=== PATIENT | male | born 1990 | race Two or more races ===

== ENCOUNTER 2016-08-22 18:53 | Emergency (ER) | payer SELFPAY ==
[2016-08-22 18:58] VITALS: BP 150/82; PULSE 98; TEMP 97.8; BMI 41.7
[2016-08-22] MEDS ORDERED: ACETAMINOPHEN 500 MG TABLET (FP) PO ONE (19:19)
--- NOTE | 2016-08-22 19:19 | PDOC ---
History of Present Illness - General Chief Complaint: Edema Stated Complaint: INFECTION Time Seen by Provider: 08/22/16 19:01 History Source: Patient Exam Limitations: No Limitations - History of Present Illness Initial Comments: 08/22/16 19:44 My Chief Complaint: Right fifth finger tenderness around cuticle History of present illness: Patient is a 26-year-old male with no significant medical problem here today planing of tenderness around cuticle on the right fifth finger after biting cuticle a few days ago. Reports that area is tender and is currently a 5 out of 10 when touching the area. Patient denies any injury to his finger. Patient has full range of motion at PIP DIP and MCP. Denies any numbness of right fifth finger. Pt.is afebrile. Past History - Past Medical History Allergies/Adverse Reactions: Allergies Allergy/AdvReac Type Severity Reaction Status Date / Time No Known Allergies Allergy Verified 08/22/16 18:57 Home Medications: Ambulatory Orders Cephalexin Monohydrate [Keflex -] 500 mg PO Q8H #20 capsule 08/22/16 - Immunization History Immunization Up to Date: Yes - Psycho/Social/Smoking Cessation Hx Anxiety: No Suicidal Ideation: No Smoking History: Never smoked Have you smoked in the past 12 months: No Hx Alcohol Use: No Drug/Substance Use Hx: No Substance Use Type: None Review of Systems - Review of Systems Able to Perform ROS?: Yes Constitutional: No: Symptoms Reported HEENTM: No: Symptoms Reported Respiratory: No: Symptoms reported Cardiac (ROS): No: Symptoms Reported ABD/GI: No: Symptoms Reported : No: Symptoms Reported Musculoskeletal: No: Symptoms Reported Integumentary: Yes: Other ( ) Neurological: No: Symptoms reported *Physical Exam - Vital Signs Last Vital Signs Temp Pulse Resp BP Pulse Ox 97.8 F 98 H 20 150/82 99 08/22/16 18:57 08/22/16 18:57 08/22/16 18:57 08/22/16 18:57 08/22/16 18:57 - Physical Exam General Appearance: Yes: Moderate Distress Extremity: positive: Normal Capillary Refill, Normal Range of Motion (rt. 5th fingerat pip, dip, mcp ), Tender (rt. 5th finger lateral cuticle area along lateral aspect of nailbed) Integumentary: positive: Other (slightly hypopigmented area tender to touch, minimally raised, along rt. 5th lateral nailbed along paronychium) Neurologic: positive: Alert, Normal Response (rt. 5th finger), Responsive Procedures - Consent Consent obtained: From Patient - Incision and Drainage I&D Site: Right: Other (5th finger ) Betadine cleansed: Yes Attempts: 2 Progress: 08/22/16 19:56 Skin with Betadine and normal saline 0.9% using an 18-gauge needle attempted to raise paranychium right fifth finger lateral aspect with an 18 gauge needle twice with out any discharge from area. Area is tender to touch.bandaid applied Medical Decision Making - Medical Decision Making 08/22/16 19:46 Patient is a 26-year-old male with no significant medical problem here today planing of tenderness around cuticle on the right fifth finger after biting cuticle a few days ago. Reports that area is tender and is currently a 5 out of 10 when touching the area. Patient denies any injury to his finger. Patient has full range of motion at PIP DIP and MCP. Denies any numbness of right fifth finger. Pt.is afebrile. rt. 5th finger early paronychia PLAN: SOAKED RT. 5TH FINGER IN BETADINE, NS 0.9% ATTEMPTED TO LEFT CUTICLE 5TH FINGER WITH 18 GAUGE NEEDLE NO DISCHARGE OBTAINED KEFLEX 500 MG PO NOW THAN EVERY 8 HRS Patient instructed to continue soaking his fifth finger and warm salt water every 3 hours for next 2 days return to emergency room if symptoms worsen increased tenderness of area and raised area or erythema of fifth finger acetaminophen 1000 mg po now *DC/Admit/Observation/Transfer Diagnosis at time of Disposition: Paronychia of finger of right hand - Discharge Dispostion Disposition: HOME Condition at time of disposition: Stable - Patient Instructions Additional Instructions: Soak your right fifth finger in warm salt water for 10-15 minutes every 3 hours while awake for next few days and return to emergency room if any increased tenderness of tender area or redness or swelling Follow up with your primary care provider in2 days Patient voiced understanding of discharge instructions and all questions were answered
[2016-08-22] MEDS ORDERED: ACETAMINOPHEN 500 MG TABLET (FP) ONE (19:22)
[2016-08-22] MEDS ORDERED: CEPHALEXIN MONOHYDRATE 500 MG CAPSULE (UD) ONE (19:44)
[2016-08-22] MEDS ORDERED: CEPHALEXIN MONOHYDRATE 500 MG CAPSULE (UD) PO ONE (19:44)
== END 2016-08-22 19:58 | disposition home or self-care (01) ==
LOC: JERFT 18:53
PROC: 0H9FXZZ Drainage of Right Hand Skin, External Approach (ICD-10-PCS; principal; 2016-08-22)
DX: L03.011 Cellulitis of right finger (principal)
CPT/HCPCS: 99281-25

== ENCOUNTER 2016-08-29 23:01 | Emergency (ER) | payer OTHER ==
[2016-08-30 00:08] VITALS: BP 142/74; PULSE 91; TEMP 98.1; BMI 44.0
[2016-08-30] MEDS ORDERED: LIDOCAINE HCL 1%, 10 MG/ML (50 mL VIAL) INF ONE (00:11)
--- NOTE | 2016-08-30 00:34 | PDOC ---
History of Present Illness - General Chief Complaint: Injury Stated Complaint: FINGER PAIN Time Seen by Provider: 08/30/16 00:06 History Source: Patient Exam Limitations: No Limitations - History of Present Illness Initial Comments: 08/30/16 00:29 26yo Male patient with no significant past medical history presents to ED c/o right small finger pain and swelling. Patient states he was seen in this ED last week and prescribed Keflex and told to return if symptoms worsen. Patient reports increased swelling and tenderness to Rt small finger. Denies fever. He states initial injury is from biting his nails. Denies any other complaints at this time. Severity: moderate Modifying Factors: improves with: medication Associated Symptoms: denies: denies symptoms, chest pain, cough, diaphoresis, fever/chills, headaches, loss of appetite, malaise, nausea/vomiting, rash, seizure, shortness of breath, syncope, weakness, other Aspirin Received prior to arrival: No: no aspirin today, unknown, 81 mg x 1, 81 mg x 2, 81 mg x 3, 81 mg x 4, 325 mg x 1, provided at home, provided by EMS, provided by ED [facility] Contraindications(Core Measure): No: Allergy, Other, Active Blding w/i 24 hrs., Plavix, Receiving Warfarin Past History - Travel Traveled outside of the country in the last 30 days: No Close contact w/someone who was outside of country & ill: No - Past Medical History Allergies/Adverse Reactions: Allergies Allergy/AdvReac Type Severity Reaction Status Date / Time No Known Allergies Allergy Verified 08/29/16 23:59 Home Medications: Ambulatory Orders Cephalexin Monohydrate [Keflex -] 500 mg PO Q8H #20 capsule 08/22/16 Oxycodone HCl/Acetaminophen [Percocet 5-325 mg Tablet] 1 tab PO Q6H PRN #12 tablet MDD 4 tab 08/30/16 Sulfamethoxazole/Trimethoprim [Bactrim Ds Tablet] 1 each PO BID #20 tablet 08/30 - Immunization History Immunization Up to Date: Yes - Psycho/Social/Smoking Cessation Hx Anxiety: No Suicidal Ideation: No Smoking History: Never smoked Have you smoked in the past 12 months: No Information on smoking cessation initiated: No Hx Alcohol Use: No Drug/Substance Use Hx: No Substance Use Type: None Review of Systems - Review of Systems Able to Perform ROS?: Yes Is the patient limited Swazi proficient: No Constitutional: No: Chills, Fever Musculoskeletal: No: Joint Pain, Joint Swelling, Joint Stiffness Integumentary: Yes: Other (Rt small finger cuticle swelling) All Other Systems: Reviewed and Negative *Physical Exam - Vital Signs Last Vital Signs Temp Pulse Resp BP Pulse Ox 98.1 F 91 H 14 142/74 96 08/30/16 00:00 08/30/16 00:00 08/30/16 00:00 08/30/16 00:00 08/30/16 00:00 - Physical Exam General Appearance: Yes: Nourished, Appropriately Dressed. No: Apparent Distress, Mild Distress, Moderate Distress, Severe Distress Neck: positive: Trachea midline, Supple. negative: Decreased range of motion, Stridor, Lymphadenopathy (R), Lymphadenopathy (L) Respiratory/Chest: positive: Lungs Clear, Normal Breath Sounds. negative: Respiratory Distress, Accessory Muscle Use, Labored Respiration, Rapid RR Cardiovascular: positive: Regular Rhythm, Regular Rate Gastrointestinal/Abdominal: positive: Normal Bowel Sounds, Soft. negative: Tender, Distended, Guarding, Rebound, Tenderness Musculoskeletal: positive: Normal Inspection. negative: CVA Tenderness Extremity: positive: Normal Capillary Refill, Normal Range of Motion (PIP, DIP, MCP WNL), Tender (Rt small finger), Swelling (Rt small finger), Erythema (Mild) . negative: Normal Inspection Integumentary: positive: Normal Color, Dry, Warm, Swelling (Rt small finger cuticle ) Neurologic: positive: eye surgeon II-XII NML intact, Fully Oriented, Alert, Normal Mood/ Affect, Normal Response, Motor Strength 5/5 Procedures - Incision and Drainage I&D Site: Right: Paronychia (Rt small finger) Betadine cleansed: Yes Anesthesia: 1% Lidocaine Volume(ml): 4 Blade Size: 11 Attempts: 2 Plain Packing: No Complications: none Dressing: Yes (Isabel wrap) Progress: 08/30/16 01:07 Patient tolerated well. *DC/Admit/Observation/Transfer Diagnosis at time of Disposition: Paronychia of finger of right hand - Discharge Dispostion Disposition: HOME Condition at time of disposition: Improved Admit: No - Prescriptions Prescriptions: Sulfamethoxazole/Trimethoprim [Bactrim Ds Tablet] 1 each PO BID #20 tablet Oxycodone HCl/Acetaminophen [Percocet 5-325 mg Tablet] 1 tab PO Q6H PRN #12 tablet MDD 4 tab PRN Reason: Severe Pain - Patient Instructions Printed Discharge Instructions: Paronychia Additional Instructions: FOLLOW UP WITH YOUR PRIMARY CARE PROVIDER THIS WEEK FOR FURTHER EVALUATION. TAKE MEDICATIONS PRESCRIBED. DO NOT DRIVE, DRINK ALCOHOL OR OPERATE HEAVY MACHINERY WHILE TAKING PERCOCET. TAKE MEDICATIONS WITH FOOD. RETURN IF SYMPTOMS WORSEN OR ANY CONCERNS FOR FURTHER EVALUATION. Print Language: BELARUSIAN
[2016-08-30] MEDS ORDERED: OXYCODONE/APAP 5/325MG COMBO TABLET PO ONE (00:44)
[2016-08-30] MEDS ORDERED: IBUPROFEN 400 MG TABLET (FP) PO ONE ×2 (00:44→00:49)
[2016-08-30] MEDS ORDERED: OXYCODONE/APAP 5/325MG COMBO TABLET ONE (00:49)
[2016-08-30] MEDS ORDERED: SULFAMETHOXAZOLE/TRIMETHOPRIM 800MG/160MG D.S. TABLET PO ONE (01:06)
[2016-08-30] MEDS ORDERED: SULFAMETHOXAZOLE/TRIMETHOPRIM 800MG/160MG D.S. TABLET ONE (01:18)
== END 2016-08-30 01:22 | disposition home or self-care (01) ==
LOC: JER 23:01
PROC: 0H9FXZZ Drainage of Right Hand Skin, External Approach (ICD-10-PCS; principal; 2016-08-29)
DX: L03.011 Cellulitis of right finger (principal)
CPT/HCPCS: 10060; 99281-25; 99282-25

== ENCOUNTER 2019-05-14 15:01 | Emergency (ER) | payer OTHER ==
[2019-05-14 15:10] VITALS: TEMP 97.7; BMI 43.0
[2019-05-14] MEDS ORDERED: diphenhydrAMINE HCL 25 MG CAPSULE (FP) PO ONE ×2 (15:51→15:55)
--- NOTE | 2019-05-14 15:59 | PDOC ---
History of Present Illness - General Chief Complaint: Weakness Stated Complaint: WEAKNESS Time Seen by Provider: 05/14/19 15:37 History Source: Patient Exam Limitations: No Limitations - History of Present Illness Initial Comments: 05/14/19 17:38 29M o/w healthy presenting after a 40 minute episode of generalized fatigue that started while he was seated eating lunch. States he now has whole tongue numbness now. Denies LOC, fall, syncope. Denies n/v, numbness/tingling/focal weakness of limbs. Denies lightheadedness, dizziness, chest pain, sob. No stressors, non-exertional. States he was having lunch at a place he frequents and has never had issue before; did not eat anything out of the ordinary; no one else w/ similar sx. NKA. Past History - Past Medical History Allergies/Adverse Reactions: Allergies Allergy/AdvReac Type Severity Reaction Status Date / Time No Known Allergies Allergy Verified 05/14/19 15:10 Home Medications: Ambulatory Orders Ibuprofen 800 mg PO TID PRN #20 tablet 09/21/17 Neomycin/Polymyxin B/Hydrocort [Cmiqtecp-Jltuhwhve-Gn Ear Susp] 2 drop OT QID 5 Days #1 bottle 09/21/17 COPD: No - Immunization History Immunization Up to Date: Yes - Psycho Social/Smoking Cessation Hx Smoking History: Never smoked Have you smoked in the past 12 months: No Hx Alcohol Use: No Drug/Substance Use Hx: No Substance Use Type: None Review of Systems - Review of Systems Able to Perform ROS?: Yes Comments:: 05/14/19 17:38 CONSTITUTIONAL: endorsed since resolved generalized weakness. Denies F / C HEENT: endorses tongue numbness. Denies lightheadedness, dizziness, changes in vision, syncope, throat or tongue swelling RESP: Denies difficulty breathing, SOB, cough CARD: Denies chest pain, palpitations GI: Denies N / V / D, abdominal pain, bloody stool, inability to tolerate PO : Denies dysuria SKIN: Denies rashes NEURO: Denies numbness, tingling, weakness PSYCH: Denies anxiety Is the patient limited French proficient: No *Physical Exam - Vital Signs Last Vital Signs Temp Pulse Resp BP Pulse Ox 97.7 F 87 18 130/81 98 05/14/19 15:08 05/14/19 15:08 05/14/19 15:08 05/14/19 15:08 05/14/19 15:08 - Physical Exam 05/14/19 17:39 GEN: Well appearing, NAD, comfortable. AAOx3. HEENT: NC/AT, EOMI, PERRL. No facial asymmetry. Moist mucous membranes, no posterior oropharynx edema, no tongue, uvular edema. Normal voice. Supple neck w / FROM. CV: S1/S2, RRR, no m/r/g LUNG: CTAB, no wheezes, crackles, rales, rhonchi. GI: Soft, ndnt, +BS, no guarding, no rebound. No masses. MSK: No obvious deformities of all extremities. SKIN: Warm, dry, no rashes appreciated. PSYCH: Normal mood and affect. NEURO: Moving all extremities well. 5/5 strength UE LE b/l. symmetric sensation. ambulates w/ normal gait. Medical Decision Making - Medical Decision Making 05/14/19 15:57 29M o/w healthy presenting with 40 minutes of since resolved generalized fatigue at lunch now c/o tongue numbness. nonexertional, no stressors. Possibly new food allergy vs anaphylactiod rxn - benadryl pt felt better; sx resolved s/p benadryl reassured pt; provided return precautions DC home Discharge - Discharge Information Problems reviewed: Yes Clinical Impression/Diagnosis: Numbness of tongue Condition: Stable Disposition: HOME - Admission No - Follow up/Referral - Patient Discharge Instructions Additional Instructions: You may have had a mild-moderate allergic reaction to a food you ate. It is reassuring that your symptoms were self-limiting. Follow up with your Primary Care Doctor in the next 14 days. Return to the nearest Emergency Department if you experience: - tongue or throat swelling - difficulty breathing, shortness of breath - chest pain - anything that concerns you - Post Discharge Activity Work/Back to School Note: Back to Work
--- NOTE | 2019-05-14 16:02 | PDOC ---
Attending Attestation - Resident Resident Name: Mukul Jesus - ED Attending Attestation I have performed the following: I have examined & evaluated the patient, The case was reviewed & discussed with the resident, I agree w/resident's findings & plan - HPI HPI: 05/14/19 16:08 29M o/w healthy presenting after a 40 minute episode of generalized "Weakness" that started while he was seated eating lunch. States he now has whole tongue numbness now. Denies LOC, fall, syncope. Denies n/v, numbness/tingling/focal weakness of limbs. Denies lightheadedness, dizziness, chest pain, sob, sore throat/pain, airway compromise. No stressors, non-exertional. States he was having lunch at a place he frequents and has never had issue before; did not eat anything out of the ordinary; no one else w/ similar sx. He admits to eating at a restaurant he has visited multiple times, where he ate rice and beans and pork, 1 shrimp and 1 green plantain. NKA. - Physicial Exam PE: 05/14/19 16:00 Agree with the resident's HPI and PE as documented in the electronic medical record. NAD, well appearing, NCAT, PERRL, EOMI, clear conjunctiva, anicteric, moist mucus membranes, oropharynx clear. Airway patent, normal phonation. Uvula midline. no tonsillar hypertrophy. tongue midline, no lesions or wounds. CN II-XII grossly intact neck supple. lungs clear, RRR, abdomen soft nontender. no rebound, guarding. Back nontender. LANG x4, no focal neuro deficits. speech clear. No peripheral edema. normal color for ethnicity, [facility]. - Medical Decision Making 05/14/19 16:02 Vital Signs Temp Pulse Resp BP Pulse Ox 97.7 F 87 18 130/81 98 05/14/19 15:08 05/14/19 15:08 05/14/19 15:08 05/14/19 15:08 05/14/19 15:08 Vital signs reviewed are within normal limits reassuring, nontoxic appearing. Airway is patent, breathing comfortably. Neurologically intact No evidence of anaphylaxis No focal neurologic deficits No fevers or systemic findings. Maintaining his secretions, Unclear etiology but patient may have had allergic reaction to food he had eaten. No evidence of hypotension. There is no rash or urticaria, no chest pain or shortness of breath. No abdominal pain nausea vomiting or diarrhea. We will trial Benadryl. Keep a food diary, avoid potential triggers Reassurance provided at the bedside. told this could be related to the food and ingredients he consumed, should resolve. Pt to be discharged in stable condition. Patient and s/o made aware of clinical impression, treatment recommendations and disposition plan, return precautions discussed (including but not limited to new or persistent/worsening symptoms, pain, fevers, or signs of infection, chest pain, respiratory distress, inability to tolerate oral intake, dehydration, syncope, or neurologic changes) . Follow up with PMD as recommended, follow up information provided, take medications as instructed for duration of time. continue with supportive care, avoid triggers and precipitants. All questions answered to patient's satisfaction and expressed understanding and comfort with this. At the time of discharge, the patient is alert, clinically improved, tolerating po and verbalizes understanding of instructions, satisfied with the care received and felt comfortable with the plan. Patient does not suffer from an acute life- threatening medical condition at this time and is safe for outpatient follow- up. 05/14/19 16:09 05/14/19 16:22
[2019-05-14 16:26] VITALS: BP 136/83; PULSE 89
== END 2019-05-14 16:30 | disposition home or self-care (01) ==
LOC: JER 15:01
DX: R20.0 Anesthesia of skin (principal)
CPT/HCPCS: 99282-25

== ENCOUNTER 2020-04-21 17:35 | Emergency (ER) | payer OTHER ==
[2020-04-21 17:44] VITALS: PULSE 72; BMI 38.4
[2020-04-21 18:38] LABS: BASO % 0.5 % (0-2.0); EOS % 1.5 % (0-4.5); HEMATOCRIT 42.5 % (35.4-49); HEMOGLOBIN 14.1 GM/dL (11.7-16.9); LYMPH % 31.9 % (8-40); MCH 28.1 pg (25.7-33.7); MCHC 33.1 g/dl (32.0-35.9); MEAN CELL VOLUME 84.9 fl (80-96); MEAN PLT VOLUME 10.2 fl (7.5-11.1); MONO % 6.4 % (3.8-10.2); NEUT % 59.7 % (42.8-82.8); PLATELET COUNT 201 K/MM3 (134-434); RDW 13.7 % (11.9-15.9); WHITE BLOOD COUNT 8.7 K/mm3 (4.0-10.0)
[2020-04-21 18:53] LABS: POTASSIUM 4.2 mmol/L (3.5-5.1)
[2020-04-21 18:55] LABS: CALCIUM 9.2 mg/dL (8.5-10.1)
[2020-04-21 18:56] LABS: ALBUMIN 4.1 g/dl (3.4-5.0); BLOOD UREA NITROGEN 15.4 mg/dL (7-18)
[2020-04-21 18:59] LABS: CREATININE 0.9 mg/dL (0.55-1.3)
[2020-04-21 19:00] LABS: BILIRUBIN,TOTAL 0.5 mg/dL (0.2-1)
[2020-04-21 19:01] LABS: TOT PROT 7.8 g/dl (6.4-8.2)
[2020-04-21 19:28] VITALS: BP 130/65; TEMP 98
== END 2020-04-21 19:29 | disposition home or self-care (01) ==
LOC: JERFT 17:35
DX: K14.6 Glossodynia (principal)
CPT/HCPCS: 36415; 70450-TC; 80053; 85025; 99284-25; C9803; U0003

== ENCOUNTER 2020-04-24 15:03 | Emergency (ER) | payer OTHER ==
[2020-04-24 15:16] VITALS: BP 143/78; PULSE 103; TEMP 98.1; BMI 39.5
== END 2020-04-24 16:13 | disposition home or self-care (01) ==
LOC: JER 15:03
DX: G51.0 Bell's palsy (principal)
CPT/HCPCS: 93005; 93010; 99284-25

== ENCOUNTER 2020-08-04 05:17 | Emergency (ER) | payer OTHER ==
[2020-08-04 05:53] VITALS: BMI 38.9
[2020-08-04 06:41] LABS: BASO % 0.6 % (0-2.0); EOS % 1.7 % (0-4.5); HEMATOCRIT 41.1 % (35.4-49); HEMOGLOBIN 13.7 GM/dL (11.7-16.9); LYMPH % 35.9 % (8-40); MCH 28.2 pg (25.7-33.7); MCHC 33.3 g/dl (32.0-35.9); MEAN CELL VOLUME 84.6 fl (80-96); MEAN PLT VOLUME 10.4 fl (7.5-11.1); MONO % 6.1 % (3.8-10.2); NEUT % 55.7 % (42.8-82.8); PLATELET COUNT 181 K/MM3 (134-434); RBC 4.86 M/mm3 (4.00-5.60); RDW 13.9 % (11.9-15.9); WHITE BLOOD COUNT 7.9 K/mm3 (4.0-10.0)
[2020-08-04 06:53] LABS: CHLORIDE 109 mmol/L (98-107); SODIUM 142 mmol/L (136-145)
[2020-08-04 06:55] LABS: CALCIUM 8.9 mg/dL (8.5-10.1)
[2020-08-04 06:56] LABS: ALBUMIN 3.9 g/dl (3.4-5.0); ANION GAP 4 MMOL/L (8-16); BLOOD UREA NITROGEN 17.3 mg/dL (7-18); CO2 28 mmol/L (21-32); GLUCOSE,RANDOM 85 mg/dL (74-106)
[2020-08-04 06:59] LABS: CREATININE 0.8 mg/dL (0.55-1.3); SGOT/AST 14 U/L (15-37); SGPT/ALT 27 U/L (13-61)
[2020-08-04 07:00] LABS: BILIRUBIN,TOTAL 0.4 mg/dL (0.2-1); TOT PROT 7.3 g/dl (6.4-8.2)
[2020-08-04 07:02] LABS: ALK PHOS 66 U/L (45-117)
[2020-08-04 09:01] VITALS: BP 120/77; PULSE 115; TEMP 97.2
== END 2020-08-04 09:00 | disposition home or self-care (01) ==
LOC: JER 05:17
DX: R00.2 Palpitations (principal); I49.3 Ventricular premature depolarization
CPT/HCPCS: 36415; 71046-TC-FY; 80053; 82550; 84443; 84484; 85025; 93005; 93010; 99285-25

== ENCOUNTER 2022-05-13 01:28 | Emergency (ER) | payer OTHER ==
[2022-05-13 01:37] VITALS: BP 115/82; PULSE 78; RESP 18; TEMP 98.2; BMI 42.8
[2022-05-13] MEDS ORDERED: KETOROLAC TROMETHAMINE 30 MG/1 ML VIAL IM ONE (02:03)
== END 2022-05-13 05:15 | disposition home or self-care (01) ==
LOC: JER 01:28
PROC: 3E0233Z Introduction of Anti-inflammatory into Muscle, Percutaneous Approach (ICD-10-PCS; principal; 2022-05-13)
DX: M54.50 Low back pain, unspecified (principal)
CPT/HCPCS: 74176-TC; 99284-25

== ENCOUNTER 2023-08-01 08:44 | Emergency (ER) | payer OTHER ==
[2023-08-01 08:59] VITALS: BP 147/87; PULSE 89; RESP 18; TEMP 98; BMI 44.1
[2023-08-01] MEDS: FAMOTIDINE 10 MG TABLET PO ONE (10:10)
[2023-08-01] MEDS: MAG HYDROX/AL HYDROX/SIMETH 30 ML UNIT-DOSE CUP PO ONE (10:10)
[2023-08-01] MEDS ORDERED: FAMOTIDINE 10 MG TABLET ONE (10:15)
[2023-08-01] MEDS ORDERED: MAG HYDROX/AL HYDROX/SIMETH 30 ML UNIT-DOSE CUP ONE (10:15)
[2023-08-01 10:32] LABS: BASO % 0.5 % (0-2.0); EOS % 1.4 % (0-4.5); HEMATOCRIT 40.4 % (35.4-49); HEMOGLOBIN 13.7 GM/dL (11.7-16.9); LYMPH % 23.3 % (8-40); MCH 28.3 pg (25.7-33.7); MEAN CELL VOLUME 83.2 fl (80-96); MEAN PLT VOLUME 9.7 fl (7.5-11.1); MONO % 5.9 % (3.8-10.2); NEUT % 68.9 % (42.8-82.8); PLATELET COUNT 202 10^3/uL (134-434); RBC 4.86 M/mm3 (4.00-5.60); RDW 14.1 % (11.9-15.9); WHITE BLOOD COUNT 7.9 K/mm3 (4.0-10.0)
[2023-08-01 10:53] LABS: POTASSIUM 3.9 mmol/L (3.5-5.1)
[2023-08-01 10:56] LABS: ALBUMIN 3.6 g/dl (3.4-5.0); BLOOD UREA NITROGEN 14.1 mg/dL (7-18); CALCIUM 9.2 mg/dL (8.5-10.1)
[2023-08-01 10:59] LABS: CREATININE 0.9 mg/dL (0.55-1.3)
[2023-08-01 11:00] LABS: TOT PROT 7.4 g/dl (6.4-8.2)
[2023-08-01 11:01] LABS: BILIRUBIN,TOTAL 0.3 mg/dL (0.2-1)
== END 2023-08-01 13:01 | disposition home or self-care (01) ==
LOC: JER 08:44
DX: K80.20 Calculus of gallbladder without cholecystitis without obstruction (principal); R10.13 Epigastric pain
CPT/HCPCS: 36415; 76705-TC; 80053; 83690; 85025; 93005; 93010; 99285-25

== ENCOUNTER 2023-08-08 10:29 | Emergency (ER) | payer OTHER ==
[2023-08-08 10:38] VITALS: RESP 18; TEMP 98; BMI 43.5
[2023-08-08 12:26] LABS: BASO % 0.5 % (0-2.0); EOS % 0.9 % (0-4.5); HEMATOCRIT 42.1 % (35.4-49); MCH 27.9 pg (25.7-33.7); MCHC 33.3 g/dl (32.0-35.9); MEAN CELL VOLUME 83.7 fl (80-96); MEAN PLT VOLUME 9.8 fl (7.5-11.1); MONO % 6.6 % (3.8-10.2); PLATELET COUNT 190 10^3/uL (134-434); RBC 5.03 M/mm3 (4.00-5.60); RDW 14.3 % (11.9-15.9); WHITE BLOOD COUNT 7.8 K/mm3 (4.0-10.0)
[2023-08-08 12:32] LABS: INR 1.2 (0.83-1.09); PROTHROMBIN TIME (PATIENT) 13.5 SEC (9.7-13.0)
[2023-08-08 12:49] LABS: POTASSIUM 4.1 mmol/L (3.5-5.1)
[2023-08-08 12:51] LABS: ALBUMIN 3.9 g/dl (3.4-5.0); BLOOD UREA NITROGEN 10.9 mg/dL (7-18); CALCIUM 9.4 mg/dL (8.5-10.1)
[2023-08-08] MEDS ORDERED: KETOROLAC TROMETHAMINE 15 MG/ML VIAL ONE (12:51)
[2023-08-08 12:54] LABS: CREATININE 0.8 mg/dL (0.55-1.3)
[2023-08-08] MEDS: KETOROLAC TROMETHAMINE 15 MG/ML VIAL IVPUSH ONE (12:54)
[2023-08-08 12:56] LABS: BILIRUBIN,TOTAL 0.8 mg/dL (0.2-1); TOT PROT 7.6 g/dl (6.4-8.2)
[2023-08-08 14:47] VITALS: BP 132/70; PULSE 69
== END 2023-08-08 14:48 | disposition home or self-care (01) ==
LOC: JER 10:29
PROC: 3E0333Z Introduction of Anti-inflammatory into Peripheral Vein, Percutaneous Approach (ICD-10-PCS; principal; 2023-08-08)
DX: K80.20 Calculus of gallbladder without cholecystitis without obstruction (principal); R10.9 Unspecified abdominal pain
CPT/HCPCS: 36415; 76705-TC; 80053; 83690; 85025; 85610; 86850; 86900; 86901; 99284-25

== ENCOUNTER 2023-09-23 00:30 | Emergency (ER) | payer SELFPAY ==
[2023-09-23 00:34] VITALS: BP 130/83; PULSE 72; RESP 18; TEMP 98.2; BMI 40.8
[2023-09-23 02:01] LABS: BASO % 0.6 % (0-2.0); EOS % 1.7 % (0-4.5); HEMATOCRIT 40.4 % (35.4-49); HEMOGLOBIN 13.3 GM/dL (11.7-16.9); LYMPH % 27.8 % (8-40); MCH 27.9 pg (25.7-33.7); MCHC 32.9 g/dl (32.0-35.9); MEAN CELL VOLUME 84.8 fl (80-96); MEAN PLT VOLUME 10.7 fl (7.5-11.1); MONO % 6.3 % (3.8-10.2); NEUT % 63.6 % (42.8-82.8); PLATELET COUNT 185 10^3/uL (134-434); RBC 4.77 M/mm3 (4.00-5.60); RDW 14.8 % (11.9-15.9); WHITE BLOOD COUNT 8.7 K/mm3 (4.0-10.0)
[2023-09-23 02:20] LABS: POTASSIUM 3.9 mmol/L (3.5-5.1)
[2023-09-23 02:22] LABS: CALCIUM 9.4 mg/dL (8.5-10.1)
[2023-09-23 02:23] LABS: ALBUMIN 3.8 g/dl (3.4-5.0); BLOOD UREA NITROGEN 11.5 mg/dL (7-18)
[2023-09-23 02:25] LABS: CREATININE 0.8 mg/dL (0.55-1.3)
[2023-09-23 02:27] LABS: BILIRUBIN,TOTAL 0.4 mg/dL (0.2-1); TOT PROT 7.2 g/dl (6.4-8.2)
== END 2023-09-23 05:41 | disposition home or self-care (01) ==
LOC: JER 00:30
DX: R10.13 Epigastric pain (principal); M54.6 Pain in thoracic spine
CPT/HCPCS: 36415; 76705-TC; 80053; 83690; 85025; 99284-25